=== PATIENT | male | born 1985 | race Caucasian/White ===

== ENCOUNTER 2020-03-18 10:10 | Emergency (ER) | payer MEDICARE ==
[~2020-03-18] VITALS: Ht 180.3 cm; Wt 126.0 kg
[2020-03-18 10:16] VITALS: BP 132/79
[2020-03-18] MEDS ORDERED: DIVA-76 PO ×2 (11:07→11:34)
[2020-03-18] MEDS ORDERED: LURA40TA3 PO ×2 (11:07→11:34)
[2020-03-18] MEDS ORDERED: LITH150C8 PO ×2 (11:07→11:34)
[2020-03-18] MEDS ORDERED: LURA60TA2 PO ×2 (11:07→11:34)
== END 2020-03-18 11:41 | disposition home or self-care (01) ==
LOC: ER 10:11
DX: F32.9 Major depressive disorder, single episode, unspecified (principal); Z76.0 Encounter for issue of repeat prescription
CPT/HCPCS: 99281

== ENCOUNTER 2020-03-29 09:58 | Emergency (ER) | payer MEDICARE ==
[~2020-03-29 09:58] MED LIST: DIVA-76 PO; LITH150C8 PO; LURA40TA3 PO; LURA60TA2 PO
[2020-03-29] MEDS ORDERED: ZOLP5TAB8 PO (10:55)
[2020-03-29] MEDS ORDERED: DIVA-76 PO (10:55)
[2020-03-29] MEDS ORDERED: LITH150C8 PO (10:55)
[2020-03-29] MEDS ORDERED: LURA60TA2 PO (10:55)
[2020-03-29] MEDS ORDERED: CLON-529 PO (10:55)
[2020-03-29] MEDS ORDERED: LURA40TA3 PO (10:55)
[2020-03-29] MEDS ORDERED: TOP100T PO (10:55)
[2020-03-29] MEDS ORDERED: AMA100C PO (10:55)
[2020-03-29 11:14] VITALS: BP 128/89
== END 2020-03-29 11:18 | disposition home or self-care (01) ==
LOC: ER 09:58
DX: G47.00 Insomnia, unspecified (principal); Z76.0 Encounter for issue of repeat prescription; Z79.899 Other long term (current) drug therapy
CPT/HCPCS: 99281

== ENCOUNTER 2020-11-25 14:13 | Inpatient (IN) | payer MEDICARE, MEDICAID ==
[~2020-11-25] VITALS: Ht 175.3 cm; Wt 120.9 kg
[~2020-11-25 14:13] MED LIST changes: +CLON-529 PO; -DIVA-76 PO; +LURA60TA PO; -LURA60TA2 PO; +TOP100T PO
[2020-11-25 15:14] LABS: BASOPHILS % (AUTO) 0.2 % (0-1); EOSINOPHILS # (AUTO) 0.1 X10'3 (0-0.9); EOSINOPHILS % (AUTO) 0.7 % (0-6); HEMATOCRIT 39.7 % (42.0-52.0); HEMOGLOBIN 12.9 g/dl (14.0-17.9); LYMPHOCYTES # (AUTO) 1.3 X10'3 (1.1-4.8); LYMPHOCYTES % (AUTO) 8.5 % (21-51); MEAN CORPUSCULAR HEMOGLOBIN 28.1 PG (27.0-31.0); MEAN CORPUSCULAR HGB CONC 32.6 g/dL (33.0-36.5); MEAN CORPUSCULAR VOLUME 86.2 FL (78-98); MONOCYTES # (AUTO) 1.2 X10'3 (0-0.9); MONOCYTES % (AUTO) 7.9 % (2-12); NEUTROPHILS # (AUTO) 12.4 X10'3 (1.8-7.7); NEUTROPHILS % (AUTO) 82.7 % (42-75); PLATELET COUNT 264 X10'3 (140-440); RED BLOOD COUNT 4.61 X10'6 (4.70-6.10); RED CELL DISTRIBUTION WIDTH 15.5 % (11.5-14.5)
[2020-11-25 15:27] LABS: ALANINE AMINOTRANSFERASE 37 U/L (12-78); ALBUMIN/GLOBULIN RATIO 1.1 (1.1-1.5); ALKALINE PHOSPHATASE 74 IU/L (46-116); ANION GAP 10 (8-16); ASPARTATE AMINO TRANSFERASE 20 U/L (10-37); BILIRUBIN,TOTAL 0.6 MG/DL (0.1-1.0); BLOOD UREA NITROGEN 18 MG/DL (7-18); BUN/CREATININE RATIO 17.1 (5.4-32.0); CALCIUM 9.6 MG/DL (8.5-10.1); CHLORIDE 104 MMOL/L (99-107); CREATININE 1.05 MG/DL (0.60-1.10); GLUCOSE 116 MG/DL (70-104); POTASSIUM 3.7 MMOL/L (3.5-5.1); SODIUM 139 MMOL/L (135-145); TOTAL PROTEIN 7.7 G/DL (6.4-8.2); eGFR 79 ML/MIN
[2020-11-25] MEDS ORDERED: normal saline 1000ml 1,000 ML IV ONE (16:30)
[2020-11-25] MEDS ORDERED: normal saline 1000ml 1,000 ML IV STA ×2 (16:32→17:14)
[2020-11-25] MEDS ORDERED: levoFLOXACIN-Levaquin 750MG/D5 150 ML IV ONE (16:40)
[2020-11-25] MEDS ORDERED: ondansetron/PF 4mg/2ml inj IV PRN (16:45)
[2020-11-25] MEDS: normal saline 1000ml 1,000 ML IV SCH (16:45)
[2020-11-25] MEDS ORDERED: magnesium hydroxide 30ml (MOM) UD suspension PO PRN (16:45)
[2020-11-25] MEDS ORDERED: mag hydrox/Alum hydrox/simeth 30ml oral suspension PO PRN (16:45)
[2020-11-25] MEDS ORDERED: morphine 2 MG/ML inj. syringe IV PRN ×2 (16:45)
[2020-11-25] MEDS ORDERED: acetaminophen 325mg tablet PO PRN (16:45)
[2020-11-25] MEDS ORDERED: DOCU-267 PO (16:53)
[2020-11-25] MEDS ORDERED: MELA3TAB39 PO (17:03)
[2020-11-25] MEDS ORDERED: TOP100T PO (17:03)
[2020-11-25] MEDS ORDERED: AMA100C PO (17:03)
[2020-11-25] MEDS ORDERED: LITH450T2 PO (17:03)
[2020-11-25] MEDS ORDERED: ATOM25CA PO (17:03)
[2020-11-25] MEDS ORDERED: LURA60TA PO (17:03)
[2020-11-25] MEDS ORDERED: RISP0.5T65 PO (17:09)
[2020-11-25] MEDS ORDERED: ZOLP5TAB8 PO (17:09)
[2020-11-25] MEDS ORDERED: LORA-269 PO (17:09)
--- NOTE | 2020-11-25 17:09 | NUR ---
Patient in room ED 3. I have received report from DECLAN Molina and had the opportunity to ask questions and assume patient care awaiting arrival to room 4018R.
--- NOTE | 2020-11-25 17:30 | NUR ---
Received pt from ED via [facility], Tele placed per order pt in SR. Pt voided but urine was emptied before collecting specimen. RLE re and hot from below knee to ankle. Left leg also demonstration redness to a lesser degree that pt was unaware of. Pt oriented to room & POC, Bed low, call light in reach. 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
[2020-11-25] MEDS ORDERED: zolpidem 5mg tablet PO PRN (17:55)
--- NOTE | 2020-11-25 18:42 | NUR ---
Problems reprioritized. Patient report given, questions answered & plan of care reviewed with DECLAN Werner.
--- NOTE | 2020-11-25 19:02 | NUR ---
Patient in room ORTHO 4013. I have received report from PAIGE Hayes RN and had the opportunity to ask questions and assume patient care.
[2020-11-25 19:04] VITALS: BP 120/69
[2020-11-25] MEDS ORDERED: lurasidone 60mg tablet PO SCH (21:00)
[2020-11-25] MEDS ORDERED: Melatonin 3mg tablet PO SCH (21:00)
[2020-11-25] MEDS: amantadine 100 MG capsule PO SCH (21:25)
[2020-11-25] MEDS: LORazepam 1 MG tablet PO SCH (21:26)
[2020-11-25] MEDS: docusate sod 100mg capsule PO SCH (21:26)
[2020-11-25] MEDS: lithium carbonate 150mg capsule PO SCH (21:26)
[2020-11-25] MEDS: topiramate 100mg tablet PO SCH (21:26)
[2020-11-25] MEDS: heparin, porcine 5000 units/ml vial SQ SCH (21:29)
[2020-11-25 22:00] VITALS: BP 109/73
[2020-11-25 23:47] LABS: CLARITY,URINE CLEAR (Clear); COLOR,URINE YELLOW (Yellow); GLUCOSE, URINE NEGATIVE (Neg); KETONES,URINE NEGATIVE (Neg); LEUKOCYTE ESTERASE ,URINE TRACE (Neg); NITRITES, URINE NEGATIVE (Neg); OCCULT BLOOD,URINE NEGATIVE (Neg); PH,URINE 7.5 (4.8-8.0); PROTEIN,URINE NEGATIVE (Neg); UROBILINOGEN,URINE 0.2 E.U/dL (0.2-1.0)
[2020-11-25 23:53] LABS: UA COLLECTION TYPE VOIDED
[2020-11-25 23:54] LABS: BACTERIA,URINE NONE SEEN /HPF (Neg); RBC,URINE NONE SEEN /HPF (0-2); SQUAMOUS EPITHELIAL CELL,UR FEW /LPF (FEW); WBC,URINE 0-4 /HPF (0-4)
[2020-11-25] MEDS: ceFAZolin/D5W- 1GM premix 50 ML IV SCH (23:55)
[2020-11-25 23:59] LABS: URINE AMPHETAMINE SCREEN POSITIVE (Neg); URINE BARBITUATE SCREEN NEGATIVE (Neg); URINE BENZODIAZEPINES SCREEN NEGATIVE (Neg); URINE CANNABINOID SCREEN NEGATIVE (Neg); URINE COCAINE SCREEN NEGATIVE (Neg); URINE METHADONE SCREEN NEGATIVE (Neg); URINE OPIATE SCREEN POSITIVE (Neg); URINE PHENCYCLIDINE SCREEN NEGATIVE (Neg)
[2020-11-26] MEDS: normal saline 1000ml 1,000 ML IV SCH (02:45)
[2020-11-26 06:00] VITALS: BP 112/72
--- NOTE | 2020-11-26 06:29 | NUR ---
Patient in room ORTHO 4013. I have received report from DECLAN Werner and had the opportunity to ask questions and assume patient care.
--- NOTE | 2020-11-26 06:30 | NUR ---
Problems reprioritized. Patient report given, questions answered & plan of care reviewed with MARISOL MANRIQUEZ.
[2020-11-26 06:54] LABS: BASOPHILS % (AUTO) 0.2 % (0-1); EOSINOPHILS # (AUTO) 0.2 X10'3 (0-0.9); EOSINOPHILS % (AUTO) 2.6 % (0-6); HEMOGLOBIN 11.4 g/dl (14.0-17.9); LYMPHOCYTES # (AUTO) 1.3 X10'3 (1.1-4.8); LYMPHOCYTES % (AUTO) 14.1 % (21-51); MEAN CORPUSCULAR HGB CONC 33.6 g/dL (33.0-36.5); MEAN CORPUSCULAR VOLUME 86.3 FL (78-98); MEAN PLATELET VOLUME 9.1 FL (7.4-10.4); MONOCYTES # (AUTO) 0.8 X10'3 (0-0.9); NEUTROPHILS # (AUTO) 6.6 X10'3 (1.8-7.7); NEUTROPHILS % (AUTO) 74.1 % (42-75); PLATELET COUNT 204 X10'3 (140-440); RED BLOOD COUNT 3.94 X10'6 (4.70-6.10); RED CELL DISTRIBUTION WIDTH 15.5 % (11.5-14.5); WHITE BLOOD COUNT 8.8 X10'3 (4.5-11.0)
[2020-11-26 06:55] LABS: ALBUMIN 3.2 G/DL (3.4-5.0); ANION GAP 11 (8-16); BLOOD UREA NITROGEN 11 MG/DL (7-18); BUN/CREATININE RATIO 13.4 (5.4-32.0); CALCIUM 8.7 MG/DL (8.5-10.1); CHLORIDE 107 MMOL/L (99-107); CREATININE 0.82 MG/DL (0.60-1.10); GLUCOSE 92 MG/DL (70-104); POTASSIUM 3.7 MMOL/L (3.5-5.1); SODIUM 141 MMOL/L (135-145); TOTAL CARBON DIOXIDE 22.6 MMOL/L (24-32); eGFR > 90 ML/MIN
[2020-11-26] MEDS: heparin, porcine 5000 units/ml vial SQ SCH (07:33)
[2020-11-26] MEDS: topiramate 100mg tablet PO SCH (07:33)
[2020-11-26] MEDS: amantadine 100 MG capsule PO SCH (07:34)
[2020-11-26] MEDS: docusate sod 100mg capsule PO SCH (07:34)
[2020-11-26] MEDS: lithium carbonate 150mg capsule PO SCH (07:34)
[2020-11-26] MEDS: LORazepam 1 MG tablet PO SCH (07:34)
[2020-11-26] MEDS: ceFAZolin/D5W- 1GM premix 50 ML IV SCH (07:36)
[2020-11-26] MEDS ORDERED: atomoxetine 25mg capsule PO SCH (08:00)
[2020-11-26] MEDS ORDERED: risperiDONE 0.5mg tablet PO SCH (08:00)
[2020-11-26] MEDS ORDERED: CEPH500C2 PO (10:27)
[2020-11-26] MEDS ORDERED: LEVO750T46 PO (10:27)
[2020-11-26 11:00] VITALS: BP 129/76
--- NOTE | 2020-11-26 11:49 | NUR ---
Patient stable for discharge per MD orders. PIV and vehicle monitor technician removed. Monitor returned to third floor telemetry office. All discharge instructions reviewed with patient, who was given the opportunity to ask questions. All questions answered. All patient belongings were gathered and sent home with patient. Patient wheeled to [facility] via w/c and departed in private vehicle with alfhome health occupational therapist.
--- NOTE | 2020-11-26 12:42 | NUR ---
Patient intermediate admin called because [facility] did not receive the transmitted antibiotic prescriptions. Both orders given to pharmacy via telephone.
[2020-11-26] MEDS ORDERED: lactobacillus rhamnosus 10,000 MMU CELLS/CAPSULE PO SCH (20:00)
== END 2020-11-26 11:50 | disposition home or self-care (01) | DRG 872 ==
LOC: ER 14:14 → ED HOLD 16:43 → EDBEDREQ 16:52 → ORTHO 4S 17:26
PROVIDERS: ADMIT Family Medicine; ATTEND Family Medicine
DX: A41.9 Sepsis, unspecified organism (principal); L03.115 Cellulitis of right lower limb; F15.10 Other stimulant abuse, uncomplicated; F17.210 Nicotine dependence, cigarettes, uncomplicated; F25.9 Schizoaffective disorder, unspecified; F31.9 Bipolar disorder, unspecified; G40.909 Epilepsy, unspecified, not intractable, without status epilepticus; F90.9 Attention-deficit hyperactivity disorder, unspecified type; Z79.899 Other long term (current) drug therapy; Z71.6 Tobacco abuse counseling
CPT/HCPCS: 36415; 71045; 80048; 80053; 80178; 80305; 81001; 83605; 84145; 85025; 87040; 87081; 87088; 96365; 99285; G0378; J0690; J1644; J1956; J7030